=== PATIENT | female | born 1985 | race African-American/Black ===

== ENCOUNTER 2016-11-15 13:45 | Emergency (ER) | payer OTHER ==
[2016-11-15] MEDS ORDERED: Lorazepam 2 MG/ML VIAL ONE (14:01)
[2016-11-15 14:08] LABS: #Basophils 0.1 thou/uL (0.0-0.2); #Eosinphils 0.1 thou/uL (0.0-0.7); #Lymphocytes 2.5 thou/uL (1.20-3.40); #Monocytes 0.4 thou/uL (0.11-0.59); #Neutrophils 2.7 thou/uL (1.40-6.50); %Basophils 1.9 % (0.0-1.0); Hematocrit 45.1 % (36.0-47.0); Mean Platelet Volume 6.2 fL (7.4-10.4); Red Blood Cell (RBC) Count 4.91 mill/uL (4.20-5.40); White Blood Cell (WBC) Count 5.7 thou/uL (4.8-10.8)
[2016-11-15 14:12] LABS: Prothrombin Time 14.7 SEC (12.0-14.7)
[2016-11-15 14:22] LABS: ALT (SGPT) 13 U/L (0-55); AST (SGOT) 16 U/L (5-34); Alkaline Phosphatase 43 U/L (40-150); Anion Gap 14 mmol/L (10-20); BUN (Urea Nitrogen) 12 mg/dL (7.0-18.7); Bilirubin, Total 0.4 mg/dL (0.2-1.2); Calc. Creatinine Clearance 0 mL/min (70-130); Calcium 9.8 mg/dL (7.8-10.44); Carbon Dioxide 20 mmol/L (22-29); Chloride 108 mmol/L (98-107); Estimated GFR-MDRD Greater than 90; Globulin 3.5 g/dL (2.4-3.5); Lipase 30 U/L (8-78); Protein, Total 8.4 g/dL (6.0-8.3)
[2016-11-15 14:23] LABS: Troponin I 0.019 ng/mL (< 0.028)
[2016-11-15 15:07] LABS: Methadone Not Detected (NotDetected); Methamphetamine Not Detected (NotDetected)
--- NOTE | 2016-11-15 20:14 | RAD ---
PORTABLE CHEST: Date: 11/15/16 An AP portable film at 1357 hours is compared with the 12/28/13 study. FINDINGS: The heart is normal in size and the lungs are clear. No infiltrate or effusion seen. The trachea is midline. The bony structures appear intact. IMPRESSION: No acute thoracic finding. POS: HOME
== END 2016-11-15 15:20 | disposition home or self-care (01) ==
LOC: BURERS 13:45
DX: F41.0 Panic disorder [episodic paroxysmal anxiety] (principal); J45.909 Unspecified asthma, uncomplicated; Z79.899 Other long term (current) drug therapy
CPT/HCPCS: 36416; 71010; 80053; 80306; 82553; 83690; 84443; 84484; 84703; 85025; 85610; 85730; 93005; 94760; 96374; J2060

== ENCOUNTER 2017-02-05 14:44 | Outpatient (CLI) | payer OTHER ==
[2017-02-05 16:48] LABS: #Basophils 0.1 thou/uL (0.0-0.2); #Eosinphils 0.2 thou/uL (0.0-0.7); #Lymphocytes 2.3 thou/uL (1.20-3.40); #Monocytes 0.5 thou/uL (0.11-0.59); #Neutrophils 2.8 thou/uL (1.40-6.50); %Basophils 0.9 % (0.0-1.0); %Eosinophils 2.7 % (0.0-10.0); %Lymphocytes 40.3 % (21.0-51.0); %Monocytes 7.8 % (0.0-10.0); %Neutrophils 48.3 % (42.0-75.0); Hemoglobin 13.4 g/dL (12.0-16.0); Mean Corpuscular HGB CONC 32.3 g/dL (32.0-36.0); Mean Corpuscular Hemoglobin 30.2 pg (27.0-31.0); Mean Corpuscular Volume 93.6 fl (81.0-99.0); Mean Platelet Volume 7.4 fL (7.4-10.4); Platelet Count 248 thou/uL (130-400); RBC Distribution Width 12.9 % (11.5-14.5); Red Blood Cell (RBC) Count 4.43 mill/uL (4.20-5.40); White Blood Cell (WBC) Count 5.8 thou/uL (4.8-10.8)
[2017-02-05 17:18] LABS: Thyroid Stimulating Hormone 0.3261 uIU/mL (0.35-4.94)
== END 2017-02-05 14:45 ==
LOC: HPCALD 14:44
PROVIDERS: ATTEND Physician Assistant
DX: E05.90 Thyrotoxicosis, unspecified without thyrotoxic crisis or storm (principal)
CPT/HCPCS: 36415; 84439; 84443; 84445; 84481; 85025

== ENCOUNTER 2017-02-10 10:08 | Emergency (ER) | payer OTHER ==
[2017-02-10] MEDS ORDERED: Ketorolac Tromethamine 60 MG/2 ML VIAL ONE (10:32)
[2017-02-10] MEDS ORDERED: Cyclobenzaprine 10 MG TAB ONE (10:32)
== END 2017-02-10 10:54 | disposition home or self-care (01) ==
LOC: BURERS 10:08
DX: S33.5XXA Sprain of ligaments of lumbar spine, initial encounter (principal); J45.909 Unspecified asthma, uncomplicated; F41.9 Anxiety disorder, unspecified; Z79.899 Other long term (current) drug therapy; X58.XXXA Exposure to other specified factors, initial encounter
CPT/HCPCS: 96372; J1885

== ENCOUNTER 2017-04-22 21:03 | Emergency (ER) | payer OTHER, SELFPAY ==
[2017-04-22] MEDS ORDERED: Lorazepam 2 MG/ML VIAL ONE (21:28)
[2017-04-22] MEDS ORDERED: Famotidine In NaCl 20 mg/50 ml Premix Bag ONE (21:35)
[2017-04-22] MEDS ORDERED: Lidocaine Viscous Sol 2% 15 ml UD Cup ONE (21:35)
[2017-04-22] MEDS ORDERED: Mag-Al Plus 1200 MG/1200 MG/120 MG/30 ML UDCUP ONE (21:35)
[2017-04-22 21:42] LABS: INR-International Normal Ratio 1.2; PTT 29.7 SEC (22.9-36.1); Prothrombin Time 14.9 SEC (12.0-14.7)
[2017-04-22 21:43] LABS: D-Dimer Test Less than 0.27 *mcg/mL (0.27-0.43)
[2017-04-22 21:46] LABS: #Basophils 0.1 thou/uL (0.0-0.2); #Eosinphils 0.2 thou/uL (0.0-0.7); #Lymphocytes 2.7 thou/uL (1.20-3.40); #Monocytes 0.7 thou/uL (0.11-0.59); #Neutrophils 3.3 thou/uL (1.40-6.50); %Eosinophils 2.7 % (0.0-10.0); %Lymphocytes 38.8 % (21.0-51.0); %Monocytes 9.8 % (0.0-10.0); %Neutrophils 46.7 % (42.0-75.0); Hemoglobin 13.2 g/dL (12.0-16.0); Mean Corpuscular Volume 90.9 fl (81.0-99.0); Mean Platelet Volume 6.2 fL (7.4-10.4); Platelet Count 251 thou/uL (130-400); Red Blood Cell (RBC) Count 4.39 mill/uL (4.20-5.40); White Blood Cell (WBC) Count 7.1 thou/uL (4.8-10.8)
[2017-04-22 21:52] LABS: ALT (SGPT) 26 U/L (8-55); AST (SGOT) 16 U/L (5-34); Alkaline Phosphatase 49 U/L (40-150); Anion Gap 13 mmol/L (10-20); BUN (Urea Nitrogen) 18 mg/dL (7.0-18.7); Bilirubin, Total 0.2 mg/dL (0.2-1.2); CK (CPK) 74 U/L (29-168); CKMB 0.3 ng/mL (0-6.6); Calc. Creatinine Clearance 0 mL/min (70-130); Calcium 9.8 mg/dL (7.8-10.44); Carbon Dioxide 23 mmol/L (22-29); Chloride 107 mmol/L (98-107); Estimated GFR-MDRD Greater than 90; Globulin 3.3 g/dL (2.4-3.5); Glucose 105 mg/dL (70-105); Lipase 33 U/L (8-78); Potassium 4.6 mmol/L (3.5-5.1); Protein, Total 7.3 g/dL (6.0-8.3); Sodium 138 mmol/L (136-145); Troponin I Less than 0.010 ng/mL (< 0.028)
--- NOTE | 2017-04-22 22:09 | RAD ---
PORTABLE CHEST: Date: 04-22-17 An AP portable film at 2120 is compared with a 11-15-16 study. FINDINGS: The heart is normal in size and the lungs are clear. No infiltrate or effusion was seen. The trachea is midline. IMPRESSION: No acute thoracic finding. POS: HOME
[2017-04-22] MEDS ORDERED: Acetaminophen 500 MG TAB ONE (22:18)
[2017-04-22] MEDS ORDERED: Ketorolac Tromethamine 30 MG/ML VIAL ONE (22:27)
[2017-04-22 22:37] LABS: Pregnancy Test - Urine (BHCG) Negative (Negative)
[2017-04-22 22:38] LABS: Bilirubin Negative (Negative); Blood, Urine Negative (Negative); Clarity Clear (Clear); Glucose, Urine (Dipstick) Negative (Negative); Leukocyte Negative (Negative); Nitrite Negative (Negative); Pregu Control Background? CLEAR/WHITE (CLR/WHITE); Pregu Control Bar Appear? YES (CONTROL BAR); Protein, Urine (Dipstick) Negative (Neg-Trace); Urobilinogen 0.2 mg/dL (0.2-1.0)
== END 2017-04-22 23:41 | disposition home or self-care (01) ==
LOC: BURERS 21:03
DX: K21.9 Gastro-esophageal reflux disease without esophagitis (principal); M41.9 Scoliosis, unspecified; J45.909 Unspecified asthma, uncomplicated
CPT/HCPCS: 71010; 80053; 81003; 81025; 82550; 82553; 83690; 84484; 85025; 85379; 85610; 85730; 93005; 94760; 96361; 96365; 96375; J1885; J2060

== ENCOUNTER 2017-08-01 12:28 | Emergency (ER) | payer SELFPAY ==
[2017-08-01 13:35] LABS: Bilirubin Negative (Negative); Blood, Urine Trace (Negative); Clarity Clear (Clear); Glucose, Urine (Dipstick) Negative (Negative); Leukocyte Negative (Negative); Nitrite Negative (Negative); Protein, Urine (Dipstick) Negative (Neg-Trace); pH, Urine 7.5 (5.0-9.0)
[2017-08-01 13:42] LABS: Pregnancy Test - Urine (BHCG) Negative (Negative); Pregu Control Background? CLEAR/WHITE (CLR/WHITE); Pregu Control Bar Appear? YES (CONTROL BAR)
[2017-08-01 13:46] LABS: Bacteria/HPF Rare-Few HPF (None Seen); RBC/HPF 0-3 HPF (0-3); Squamous Epithelial 0-3 HPF (0-3); WBC/HPF 0-3 HPF (0-3)
[2017-08-01 13:49] LABS: #Basophils 0.1 thou/uL (0.0-0.2); #Eosinphils 0.2 thou/uL (0.0-0.7); #Lymphocytes 1.6 thou/uL (1.20-3.40); #Monocytes 0.4 thou/uL (0.11-0.59); %Lymphocytes 31.4 % (21.0-51.0); %Monocytes 8.1 % (0.0-10.0); %Neutrophils 56.4 % (42.0-75.0); Hemoglobin 13.5 g/dL (12.0-16.0); Mean Corpuscular HGB CONC 32.4 g/dL (32.0-36.0); Mean Corpuscular Hemoglobin 29.2 pg (27.0-31.0); Mean Platelet Volume 6.2 fL (7.4-10.4); Platelet Count 261 thou/uL (130-400); RBC Distribution Width 13.2 % (11.5-14.5); Red Blood Cell (RBC) Count 4.62 mill/uL (4.20-5.40); White Blood Cell (WBC) Count 5.2 thou/uL (4.8-10.8)
[2017-08-01] MEDS ORDERED: Ketorolac Tromethamine 60 MG/2 ML VIAL ONE (13:56)
[2017-08-01 14:02] LABS: ALT (SGPT) 15 U/L (8-55); AST (SGOT) 13 U/L (5-34); Alkaline Phosphatase 51 U/L (40-150); Anion Gap 13 mmol/L (10-20); BUN (Urea Nitrogen) 15 mg/dL (7.0-18.7); Bilirubin, Total 0.3 mg/dL (0.2-1.2); Calc. Creatinine Clearance 0 mL/min (70-130); Calcium 9.5 mg/dL (7.8-10.44); Carbon Dioxide 23 mmol/L (22-29); Chloride 108 mmol/L (98-107); Estimated GFR-MDRD Greater than 90; Globulin 3.5 g/dL (2.4-3.5); Glucose 74 mg/dL (70-105); Potassium 4.1 mmol/L (3.5-5.1); Protein, Total 7.5 g/dL (6.0-8.3); Sodium 140 mmol/L (136-145)
--- NOTE | 2017-08-01 15:12 | CT ---
CT OF THE ABDOMEN AND PELVIS WITHOUT CONTRAST: Date: 08/01/17 COMPARISON: None. HISTORY: Right flank pain and hematuria. TECHNIQUE: Multiple contiguous axial images were obtained in a CT of the abdomen and pelvis without contrast. C oronal reformats were performed. FINDINGS: The liver, gallbladder, kidneys, adrenal glands, spleen, and pancreas are unremarkable, although eloy luation is limited on this noncontrast examination. No calcifications are seen in either kidney or a long the course of the ureters. No abnormality is seen in the urinary bladder. The uterus is enlarged and lobulated, which may represent uterine fibroids. The large and small samuel l are unremarkable. The appendix is unremarkable. No abdominal or pelvic lymphadenopathy are seen. The osseous structures, visualized inferior thorax, and abdominal wall soft tissues are unremarkable . IMPRESSION: 1. No evidence of renal or urinary collecting system abnormality. 2. Likely fibroid uterus. Evaluation of the uterus is limited without IV contrast. POS: [facility]
== END 2017-08-01 14:46 | disposition home or self-care (01) ==
LOC: BURERS 12:28
DX: S39.011A Strain of muscle, fascia and tendon of abdomen, initial encounter (principal); N76.0 Acute vaginitis; J45.909 Unspecified asthma, uncomplicated; F41.9 Anxiety disorder, unspecified; X58.XXXA Exposure to other specified factors, initial encounter
CPT/HCPCS: 36415; 74176; 80053; 81003; 81015; 81025; 85025; 96372; J1885

== ENCOUNTER → 2018-06-22 | Emergency (ER) | payer MEDICAID, SELFPAY ==
[~2018-06-22] MED LIST: Diazepam 5 MG TAB ONE; Ketorolac Tromethamine 60 MG/2 ML VIAL ONE
== END ==
LOC: BURERS 22:49
DX: M62.830 Muscle spasm of back (principal); J45.909 Unspecified asthma, uncomplicated; F41.9 Anxiety disorder, unspecified
CPT/HCPCS: 96372; J1885

== ENCOUNTER 2020-08-03 20:34 | Emergency (ER) | payer SELFPAY ==
[2020-08-04 22:55] LABS: SARS-CoV-2 MS2 Positive; SARS-CoV-2 N Gene Negative; SARS-CoV-2 S Gene Negative; SARS-CoV-2 by NAA Not Detected (NotDetected); SARS-CoV-2 orf1ab Negative
== END 2020-08-03 22:15 | disposition home or self-care (01) ==
LOC: BURERS 20:34
DX: R06.02 Shortness of breath (principal); F41.9 Anxiety disorder, unspecified; F17.210 Nicotine dependence, cigarettes, uncomplicated; Z20.828 Contact with and (suspected) exposure to other viral communicable diseases
CPT/HCPCS: 87635; 99283; U0003

== ENCOUNTER 2021-07-11 11:31 | Emergency (ER) | payer OTHER, SELFPAY ==
[2021-07-11 22:56] LABS: SARS-CoV-2 PCR by NAA Not Detected (NotDetected)
== END 2021-07-11 12:28 | disposition home or self-care (01) ==
LOC: BURERS 11:31
DX: R50.9 Fever, unspecified (principal); R05.9 Cough, unspecified; Z20.822 Contact with and (suspected) exposure to COVID-19; F17.210 Nicotine dependence, cigarettes, uncomplicated
CPT/HCPCS: 99406; U0003; U0005

== ENCOUNTER 2021-11-10 01:09 | Emergency (ER) | payer SELFPAY ==
[2021-11-10] MEDS ORDERED: Dexamethasone 4 MG TAB ONE (01:27)
[2021-11-10] MEDS ORDERED: AMOXicillin 250 MG CAP ONE (01:27)
== END 2021-11-10 02:00 | disposition home or self-care (01) ==
LOC: BURERS 01:09
DX: J02.9 Acute pharyngitis, unspecified (principal); J45.909 Unspecified asthma, uncomplicated; F17.210 Nicotine dependence, cigarettes, uncomplicated; Z79.899 Other long term (current) drug therapy
CPT/HCPCS: 99282; J8540

== ENCOUNTER 2022-10-15 15:37 | Emergency (ER) | payer SELFPAY | END 2022-10-15 16:45 | disposition home or self-care (01) | LOC: BURERS 15:37 | DX: U07.1 COVID-19 (principal) | CPT/HCPCS: 99283 ==